=== PATIENT | male | born 1970 | race Hispanic/Latino ===

== ENCOUNTER → 2024-05-02 | Outpatient (CLI) | payer OTHER, SELFPAY ==
[2024-05-02 12:11] LABS: CHOLESTEROL 104 mg/dL (<200); HDL CHOLESTEROL 31 mg/dL (29-71); LDL DIRECT 64 mg/dL (0-99); TRIGLYCERIDES 89 mg/dL (30-200)
== END | disposition home or self-care (01) ==
LOC: LAB 08:36
PROVIDERS: ATTEND Internal Medicine Cardiovascular Disease
DX: I25.10 Atherosclerotic heart disease of native coronary artery without angina pectoris (principal)
CPT/HCPCS: 36415; 80061